=== PATIENT | male | born 1940 | race Caucasian/White ===

== ENCOUNTER 2019-11-19 10:54 | Emergency (ER) | payer MEDICARE, OTHER ==
[~2019-11-19] VITALS: Ht 175.3 cm; Wt 105.0 kg
[2019-11-19 11:37] LABS: BASOPHILS # (AUTO) 0.1 X10'3 (0-0.2); EOSINOPHILS # (AUTO) 0.3 X10'3 (0-0.9); EOSINOPHILS % (AUTO) 3.3 % (0-6); HEMATOCRIT 40.8 % (42.0-52.0); HEMOGLOBIN 12.8 g/dl (14.0-17.9); LYMPHOCYTES # (AUTO) 1.9 X10'3 (1.1-4.8); LYMPHOCYTES % (AUTO) 22.9 % (21-51); MEAN CORPUSCULAR HEMOGLOBIN 26.3 PG (27.0-31.0); MEAN CORPUSCULAR HGB CONC 31.3 g/dL (33.0-36.5); MEAN CORPUSCULAR VOLUME 84.1 FL (78-98); MONOCYTES # (AUTO) 0.6 X10'3 (0-0.9); MONOCYTES % (AUTO) 7.7 % (2-12); NEUTROPHILS # (AUTO) 5.3 X10'3 (1.8-7.7); NEUTROPHILS % (AUTO) 65.1 % (42-75); PLATELET COUNT 124 X10'3 (140-440); RED BLOOD COUNT 4.85 X10'6 (4.70-6.10); RED CELL DISTRIBUTION WIDTH 21.4 % (11.5-14.5); WHITE BLOOD COUNT 8.1 X10'3 (4.5-11.0)
[2019-11-19 12:01] VITALS: BP 171/118
[2019-11-19 12:01] LABS: ALANINE AMINOTRANSFERASE 16 U/L (12-78); ALBUMIN 3.2 G/DL (3.4-5.0); ALBUMIN/GLOBULIN RATIO 0.6 (1.1-1.5); ALKALINE PHOSPHATASE 113 IU/L (46-116); ANION GAP 11 (8-16); ASPARTATE AMINO TRANSFERASE 18 U/L (10-37); BILIRUBIN,TOTAL 0.4 MG/DL (0.1-1.0); BLOOD UREA NITROGEN 30 MG/DL (7-18); BUN/CREATININE RATIO 16.6 (5.4-32.0); CALCIUM 8.9 MG/DL (8.5-10.1); CHLORIDE 106 MMOL/L (99-107); CREATININE 1.81 MG/DL (0.60-1.10); GLUCOSE 104 MG/DL (70-104); POTASSIUM 4.4 MMOL/L (3.5-5.1); SODIUM 137 MMOL/L (135-145); TOTAL CARBON DIOXIDE 20.3 MMOL/L (24-32); TOTAL PROTEIN 8.6 G/DL (6.4-8.2); eGFR 36 ML/MIN
[2019-11-19 12:15] LABS: ANISOCYTOSIS 3+; PLATELET ESTIMATE DECREASED; TOTAL CELLS COUNTED 100
[2019-11-19] MEDS ORDERED: orphenadrine citrate 60mg/2ml inj. IM ONE (12:15)
[2019-11-19] MEDS ORDERED: acetaminophen 325mg tablet PO ONE (12:15)
[2019-11-19 12:16] LABS: POLYCHROMASIA FEW
[2019-11-19] MEDS ORDERED: CYCL-1 PO (12:17)
--- NOTE | 2019-11-19 12:26 | NUR ---
Joanna Mckee, pt's can be reached at [phone].
== END 2019-11-19 12:33 | disposition home or self-care (01) ==
LOC: ER 10:56
DX: S29.012A Strain of muscle and tendon of back wall of thorax, initial encounter (principal); M54.6 Pain in thoracic spine; M25.512 Pain in left shoulder; Z88.8 Allergy status to other drugs, medicaments and biological substances; Z79.899 Other long term (current) drug therapy; X58.XXXA Exposure to other specified factors, initial encounter; Y93.89 Activity, other specified; Y92.89 Other specified places as the place of occurrence of the external cause; Y99.8 Other external cause status
CPT/HCPCS: 36415; 71045; 80053; 83880; 84484; 85007; 85025; 93005; 96372; 99285; J2360

== ENCOUNTER 2020-01-25 17:46 | Inpatient (IN) | payer OTHER ==
[~2020-01-25] VITALS: Ht 167.6 cm; Wt 94.5 kg
[~2020-01-25 17:46] MED LIST: CYCL-1 PO
--- NOTE | 2020-01-25 17:57 | NUR ---
Spoke to PATY Clemons regarding possiblity of stroke alert. He states no stroke alert needing to be called at this time. Verbal order for head CT recevied.
--- NOTE | 2020-01-25 18:05 | NUR ---
Pt states he does not tolerate lying flat well, but is willing to "try" to get CT scan.
[2020-01-25 18:49] LABS: BASOPHILS # (AUTO) 0.1 X10'3 (0-0.2); BASOPHILS % (AUTO) 0.6 % (0-1); EOSINOPHILS # (AUTO) 0.3 X10'3 (0-0.9); EOSINOPHILS % (AUTO) 3.2 % (0-6); HEMATOCRIT 43.2 % (42.0-52.0); HEMOGLOBIN 13.7 g/dl (14.0-17.9); LYMPHOCYTES # (AUTO) 1.7 X10'3 (1.1-4.8); LYMPHOCYTES % (AUTO) 20.1 % (21-51); MEAN CORPUSCULAR HEMOGLOBIN 27.7 PG (27.0-31.0); MEAN CORPUSCULAR HGB CONC 31.8 g/dL (33.0-36.5); MEAN CORPUSCULAR VOLUME 87.1 FL (78-98); MONOCYTES # (AUTO) 0.8 X10'3 (0-0.9); MONOCYTES % (AUTO) 9.9 % (2-12); NEUTROPHILS # (AUTO) 5.6 X10'3 (1.8-7.7); NEUTROPHILS % (AUTO) 66.2 % (42-75); PLATELET COUNT 120 X10'3 (140-440); RED BLOOD COUNT 4.96 X10'6 (4.70-6.10); RED CELL DISTRIBUTION WIDTH 20.2 % (11.5-14.5); WHITE BLOOD COUNT 8.4 X10'3 (4.5-11.0)
[2020-01-25 19:04] LABS: ALANINE AMINOTRANSFERASE 23 U/L (12-78); ALBUMIN 3.2 G/DL (3.4-5.0); ALBUMIN/GLOBULIN RATIO 0.6 (1.1-1.5); ALKALINE PHOSPHATASE 145 IU/L (46-116); ANION GAP 9 (8-16); ASPARTATE AMINO TRANSFERASE 33 U/L (10-37); BILIRUBIN,TOTAL 0.6 MG/DL (0.1-1.0); BLOOD UREA NITROGEN 31 MG/DL (7-18); BUN/CREATININE RATIO 16.1 (5.4-32.0); CALCIUM 9.3 MG/DL (8.5-10.1); CHLORIDE 102 MMOL/L (99-107); CREATININE 1.92 MG/DL (0.60-1.10); GLUCOSE 108 MG/DL (70-104); POTASSIUM 4.6 MMOL/L (3.5-5.1); SODIUM 137 MMOL/L (135-145); TOTAL PROTEIN 8.7 G/DL (6.4-8.2); eGFR 34 ML/MIN
[2020-01-25] MEDS ORDERED: ATOR10TA70 PO (21:50)
[2020-01-25] MEDS ORDERED: LEVE250T PO (21:50)
[2020-01-25] MEDS ORDERED: PANT40TA54 PO (21:50)
[2020-01-25] MEDS ORDERED: SOTA80TA10 PO (21:50)
[2020-01-25] MEDS ORDERED: TEST200V10 INJ (21:50)
[2020-01-25] MEDS ORDERED: HYDR-3968 PO (21:50)
[2020-01-25] MEDS ORDERED: CYCL5TAB79 PO (21:50)
[2020-01-25] MEDS ORDERED: ATEN25TA PO (21:50)
[2020-01-25] MEDS ORDERED: GABA-530 PO (21:50)
[2020-01-25] MEDS ORDERED: LORA-269 PO (21:50)
[2020-01-25] MEDS ORDERED: potassium CL 10mEq/100ml bag 100 ML IV PRN ×2 (22:30)
[2020-01-25] MEDS ORDERED: acetaminophen 325mg tablet PO PRN (22:30)
[2020-01-25] MEDS ORDERED: potassium Cl 20 mEq SR tablet PO PRN ×2 (22:30)
[2020-01-25] MEDS ORDERED: ondansetron/PF 4mg/2ml inj IV PRN (22:30)
[2020-01-25] MEDS ORDERED: HYDROcodone/acetaminophen 10/325mg tab PO PRN (22:30)
[2020-01-25] MEDS ORDERED: magnesium hydroxide 30ml (MOM) UD suspension PO PRN (22:30)
[2020-01-25] MEDS ORDERED: mag hydrox/Alum hydrox/simeth 30ml oral suspension PO PRN (22:30)
[2020-01-25] MEDS ORDERED: HYDROcodone/acetaminophen 5mg/325mg tablet PO PRN (22:30)
[2020-01-25] MEDS ORDERED: cyclobenzaprine 10mg tablet PO PRN (23:00)
--- NOTE | 2020-01-25 23:28 | NUR ---
Patient in room ED 4. I have received report from Bari KIM and had the opportunity to ask questions and assume patient care. Patient will be brought to O/N and go in room 4012B.
[2020-01-25 23:50] VITALS: BP 166/78
[2020-01-26 02:00] VITALS: BP 165/81
[2020-01-26 05:45] LABS: BASOPHILS # (AUTO) 0.1 X10'3 (0-0.2); BASOPHILS % (AUTO) 0.6 % (0-1); EOSINOPHILS # (AUTO) 0.2 X10'3 (0-0.9); EOSINOPHILS % (AUTO) 2.4 % (0-6); HEMATOCRIT 42.7 % (42.0-52.0); HEMOGLOBIN 13.7 g/dl (14.0-17.9); LYMPHOCYTES # (AUTO) 1.8 X10'3 (1.1-4.8); LYMPHOCYTES % (AUTO) 19.7 % (21-51); MEAN CORPUSCULAR HEMOGLOBIN 27.7 PG (27.0-31.0); MEAN CORPUSCULAR HGB CONC 32.1 g/dL (33.0-36.5); MEAN CORPUSCULAR VOLUME 86.3 FL (78-98); MEAN PLATELET VOLUME 11.1 FL (7.4-10.4); MONOCYTES # (AUTO) 0.7 X10'3 (0-0.9); MONOCYTES % (AUTO) 7.8 % (2-12); NEUTROPHILS # (AUTO) 6.5 X10'3 (1.8-7.7); NEUTROPHILS % (AUTO) 69.5 % (42-75); PLATELET COUNT 133 X10'3 (140-440); RED BLOOD COUNT 4.95 X10'6 (4.70-6.10); RED CELL DISTRIBUTION WIDTH 20.3 % (11.5-14.5); WHITE BLOOD COUNT 9.4 X10'3 (4.5-11.0)
[2020-01-26] MEDS: normal saline 1000ml 1,000 ML IV SCH ×2 (05:49→19:34)
[2020-01-26 05:51] LABS: CHLORIDE 104 MMOL/L (99-107); POTASSIUM 4.3 MMOL/L (3.5-5.1); SODIUM 138 MMOL/L (135-145)
[2020-01-26 06:00] VITALS: BP 170/81
--- NOTE | 2020-01-26 06:26 | NUR ---
Problems reprioritized. Patient report given, questions answered & plan of care reviewed with herve ALDRIDGE.
[2020-01-26 06:36] LABS: ALANINE AMINOTRANSFERASE 24 U/L (12-78); ALBUMIN 3.2 G/DL (3.4-5.0); ALBUMIN/GLOBULIN RATIO 0.6 (1.1-1.5); ALKALINE PHOSPHATASE 147 IU/L (46-116); ANION GAP 16 (8-16); ASPARTATE AMINO TRANSFERASE 35 U/L (10-37); BILIRUBIN,TOTAL 0.7 MG/DL (0.1-1.0); BLOOD UREA NITROGEN 28 MG/DL (7-18); BUN/CREATININE RATIO 15.3 (5.4-32.0); CALCIUM 9.2 MG/DL (8.5-10.1); CHOL/HDL RATIO 2.5 (0.00-4.99); CHOLESTEROL 75 MG/DL (0-200); CREATININE 1.83 MG/DL (0.60-1.10); GLUCOSE 103 MG/DL (70-104); HDL CHOLESTEROL 30 MG/DL (35-60); LDL CHOLESTEROL 33 MG/DL (50-100); TOTAL CARBON DIOXIDE 18.1 MMOL/L (24-32); TOTAL PROTEIN 8.9 G/DL (6.4-8.2); TRIGLYCERIDES 94 MG/DL (20-135); eGFR 36 ML/MIN
[2020-01-26] MEDS: morphine 2 MG/ML inj. syringe IV PRN ×2 (07:08→22:09)
[2020-01-26 07:43] LABS: LARGE PLATELETS FEW; PLATELET ESTIMATE DECREASED
[2020-01-26 07:44] LABS: ANISOCYTOSIS 3+; ROULEAUX 1+; TEAR DROP CELLS FEW
[2020-01-26] MEDS: pantoprazole 40mg Tablet.DR PO SCH ×2 (08:00→20:33)
[2020-01-26] MEDS: gabapentin 100mg capsule PO SCH ×4 (08:00→21:00)
[2020-01-26] MEDS ORDERED: atorvastatin 10mg tablet PO SCH (08:00)
[2020-01-26] MEDS ORDERED: LORazepam 1 MG tablet PO SCH (08:00)
[2020-01-26] MEDS ORDERED: levetiracetam 250mg tablet PO SCH (08:00)
[2020-01-26] MEDS: sotalol 80mg tablet PO SCH ×2 (08:00→20:33)
[2020-01-26] MEDS: K and/or MAG REPLACEMENT MC SCH ×2 (08:00→20:00)
[2020-01-26] MEDS: levetiracetam inj 250 MG in normal saline 100ml IV soln 97.5 ML IV SCH ×2 (08:29→21:17)
[2020-01-26] MEDS: LORazepam 2 mg/ml vial IV SCH ×2 (08:29→20:33)
--- NOTE | 2020-01-26 09:48 | NUR ---
PAGER ID: [phone] MESSAGE: [id number] Rafi can we talk meds, he's aspiration risk & nursing made him NPO Lissett 1979
[2020-01-26 10:00] VITALS: BP 163/95
[2020-01-26] MEDS ORDERED: FLU VACC QS2020-21(6MOS UP)/PF 60 MCG/0.5 ML SYRINGE IMVAC ONE (10:00)
[2020-01-26] MEDS ORDERED: pneumococcal 23-VAL P-sac vacc 25 mcg/0.5ml vial IMVAC ONE (10:00)
--- NOTE | 2020-01-26 10:50 | NUR ---
Patient is very confused after ativan. Dr Valerio here.
[2020-01-26 14:00] VITALS: BP 135/58
[2020-01-26] MEDS: methyl salicylate/menthol cream 57gm TP SCH ×2 (15:00→21:00)
[2020-01-26] MEDS: atenolol 25mg tablet PO SCH ×2 (15:00→20:47)
--- NOTE | 2020-01-26 18:27 | NUR ---
Problems reprioritized. Patient report given, questions answered & plan of care reviewed with OLY Kahn.
--- NOTE | 2020-01-26 18:44 | NUR ---
Patient in room ORTHO 4012. I have received report from Teresa, RN and Criss RN and had the opportunity to ask questions and assume patient care.
--- NOTE | 2020-01-26 20:30 | NUR ---
Patient attempting to go AMA. Spoke to on the phone who stated she would be willing to come get him however, the only person to assist to get him into his wheelchair and into the house is elderly (63) and subsequently cannot be reached due to power outages. Advised I would medicate patient with ativan and attempt to control pain by staying on top of the pain medications over night. will call back in one hour to check status of patient and after continuing to get a hold of her help.
[2020-01-26 20:33] VITALS: BP 175/74
--- NOTE | 2020-01-26 21:30 | NUR ---
Advised patient doing much better after ativan and I would be administering pain medications once enough time had passed. states she is unable to get a hold of help to transfer and states she will call back in the AM.
[2020-01-26 22:00] VITALS: BP 151/56
[2020-01-27] MEDS: morphine 2 MG/ML inj. syringe IV PRN ×2 (00:56→04:35)
[2020-01-27 02:30] VITALS: BP 152/84
[2020-01-27] MEDS: normal saline 1000ml 1,000 ML IV SCH (04:35)
[2020-01-27 05:55] LABS: BASOPHILS # (AUTO) 0.1 X10'3 (0-0.2); BASOPHILS % (AUTO) 0.8 % (0-1); EOSINOPHILS # (AUTO) 0.1 X10'3 (0-0.9); EOSINOPHILS % (AUTO) 0.9 % (0-6); HEMOGLOBIN 13.4 g/dl (14.0-17.9); LYMPHOCYTES % (AUTO) 20.9 % (21-51); MEAN CORPUSCULAR HEMOGLOBIN 27.4 PG (27.0-31.0); MEAN CORPUSCULAR HGB CONC 31.9 g/dL (33.0-36.5); MEAN CORPUSCULAR VOLUME 85.9 FL (78-98); MEAN PLATELET VOLUME 10.4 FL (7.4-10.4); MONOCYTES # (AUTO) 1.1 X10'3 (0-0.9); MONOCYTES % (AUTO) 11.8 % (2-12); NEUTROPHILS # (AUTO) 6.3 X10'3 (1.8-7.7); NEUTROPHILS % (AUTO) 65.6 % (42-75); PLATELET COUNT 123 X10'3 (140-440); RED BLOOD COUNT 4.89 X10'6 (4.70-6.10); RED CELL DISTRIBUTION WIDTH 20.5 % (11.5-14.5); WHITE BLOOD COUNT 9.5 X10'3 (4.5-11.0)
[2020-01-27 06:00] VITALS: BP 152/59
[2020-01-27 06:11] LABS: ALANINE AMINOTRANSFERASE 15 U/L (12-78); ALBUMIN 2.8 G/DL (3.4-5.0); ALBUMIN/GLOBULIN RATIO 0.5 (1.1-1.5); ALKALINE PHOSPHATASE 122 IU/L (46-116); ANION GAP 14 (8-16); ASPARTATE AMINO TRANSFERASE 28 U/L (10-37); BILIRUBIN,TOTAL 0.9 MG/DL (0.1-1.0); BLOOD UREA NITROGEN 28 MG/DL (7-18); BUN/CREATININE RATIO 17.2 (5.4-32.0); CALCIUM 9.2 MG/DL (8.5-10.1); CHLORIDE 107 MMOL/L (99-107); CREATININE 1.63 MG/DL (0.60-1.10); GLUCOSE 98 MG/DL (70-104); POTASSIUM 3.8 MMOL/L (3.5-5.1); SODIUM 141 MMOL/L (135-145); TOTAL CARBON DIOXIDE 19.7 MMOL/L (24-32); TOTAL PROTEIN 8.1 G/DL (6.4-8.2); eGFR 41 ML/MIN
--- NOTE | 2020-01-27 06:31 | NUR ---
Problems reprioritized. Patient report given, questions answered & plan of care reviewed with OLY Quintero.
--- NOTE | 2020-01-27 06:32 | NUR ---
Patient in room ORTHO 4012. I have received report from Criss Leo RN and had the opportunity to ask questions and assume patient care.
[2020-01-27 07:05] LABS: ANISOCYTOSIS 3+; PLATELET ESTIMATE DECREASED
--- NOTE | 2020-01-27 07:45 | NUR ---
After medication was taken out and waste amount wasted patient ended up refusing medication before he left. Witnessed medication waste with student at this time. Medication was .5ml of morphine 1mg/1ml. Addendum: 01/27/20 at 1753 by July Funes RN I WITNESSED STUDENT WASTE MEDICATION. WILL AGREE WITH ABOVE STATEMENT
--- NOTE | 2020-01-27 07:45 | NUR ---
Patient signed AMA prior to full assessment. 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
--- NOTE | 2020-01-27 08:01 | NUR ---
Pt left AMA, iv removed, tele monitor removed, assisted in dressing, wheeled down to in stable condition
--- NOTE | 2020-01-27 08:01 | NUR ---
Page Sent PAGER ID: [phone] MESSAGE: [id number]: Edilberto Mckee 4012B... Pt left AMA, papers signed
[2020-01-27] MEDS ORDERED: FLU VACC QS2020-21(6MOS UP)/PF 60 MCG/0.5 ML SYRINGE IMVAC ONE (10:00)
[2020-01-27] MEDS ORDERED: pneumococcal 23-VAL P-sac vacc 25 mcg/0.5ml vial IMVAC ONE (10:00)
== END 2020-01-27 07:55 | disposition left against medical advice (07) | DRG 563 ==
LOC: ER 17:46 → ED HOLD 22:27 → ORTHO 4S 23:41
PROVIDERS: ADMIT Internal Medicine; ATTEND Family Medicine
DX: S29.012A Strain of muscle and tendon of back wall of thorax, initial encounter (principal); R47.81 Slurred speech; E78.5 Hyperlipidemia, unspecified; J44.9 Chronic obstructive pulmonary disease, unspecified; R13.10 Dysphagia, unspecified; Z53.29 Procedure and treatment not carried out because of patient's decision for other reasons; G62.9 Polyneuropathy, unspecified; X58.XXXA Exposure to other specified factors, initial encounter; N28.9 Disorder of kidney and ureter, unspecified; Z85.841 Personal history of malignant neoplasm of brain; Z87.891 Personal history of nicotine dependence; I25.2 Old myocardial infarction; Z88.8 Allergy status to other drugs, medicaments and biological substances; Z95.5 Presence of coronary angioplasty implant and graft; Z79.899 Other long term (current) drug therapy; Y93.89 Activity, other specified; Y92.89 Other specified places as the place of occurrence of the external cause; Y99.8 Other external cause status
CPT/HCPCS: 36415; 70450; 71045; 80053; 80061; 83036; 84443; 85008; 85025; 87081; 92508; 92616; 93005; 93308; 97110; 97116; 97163; 97530; 99285; G0378; J1953; J2060; J2270; J7030